=== PATIENT | male | born 1965 | race Hispanic/Latino ===

== ENCOUNTER 2017-03-11 10:54 | Emergency (ER) | payer BC, MEDICAID, OTHER ==
[2017-03-11 10:55] VITALS: BMI 30.2
[2017-03-11 10:59] VITALS: BP 138/94; PULSE 114; RESP 20; TEMP 98.4; O2SAT 97
--- NOTE | 2017-03-11 12:34 | C.PDOC ---
Time Seen by Provider: 03/11/17 11:36 Chief Complaint (Nursing): Substance Abuse Past Medical History Vital Signs: Last Vital Signs Temp 98.4 F 03/11/17 10:55 Pulse 114 H 03/11/17 10:55 Resp 20 03/11/17 10:55 BP 138/94 H 03/11/17 10:55 Pulse Ox 97 03/11/17 10:55 - Medical History PMH: Asthma, Atrial Fibrillation, Cardia Arrhythmia, COPD, Depression, Fractures (Left ankle rota cuff), HTN Denies: Diabetes, Hepatitis, HIV, Chronic Kidney Disease, Seizures, Sexually Transmitted Disease - [facility] Procedures DETOXIFICATION SERVICES FOR SUBSTANCE ABUSE TREATMENT (10/27/16) GROUP PSYCHOTHERAPY (01/11/17) INDIVIDUAL PSYCHOTHERAPY, BEHAVIORAL (07/05/16) INDIVIDUAL PSYCHOTHERAPY, COGNITIVE-BEHAVIORAL (01/11/17) Family History: States: Unknown Family Hx - Social History Hx Alcohol Use: Yes Hx Substance Use: No - Immunization History Hx Tetanus Toxoid Vaccination: No Hx Influenza Vaccination: No ED Course And Treatment O2 Sat by Pulse Oximetry: 97 Disposition Counseled Patient/Family Regarding: Diagnosis, Need For Followup - Disposition Referrals: [facility] [Outside] Disposition: HOME/ ROUTINE Disposition Time: 12:33 Additional Instructions: Please call Detox unit at [phone] Instructions: Alcohol Use Disorder (ED) Forms: General Discharge Instructions - Clinical Impression Clinical Impression: Alcohol abuse
== END 2017-03-11 12:58 | disposition home or self-care (01) ==
LOC: C.ER 10:54
DX: F10.10 Alcohol abuse, uncomplicated (principal); Y90.9 Presence of alcohol in blood, level not specified